=== PATIENT | male | born 1945 ===

== ENCOUNTER 2021-11-17 09:45 | Inpatient (IN) | payer OTHER ==
[~2021-11-17] VITALS: Ht 177.8 cm; Wt 83.9 kg
[2021-11-17] MEDS ORDERED: COZAAR100 MG PO (13:22)
[2021-11-17] MEDS ORDERED: GLUMETZA1000 MG PO (13:22)
[2021-11-19] MEDS ORDERED: TAMSULOSIN HCL0.4 MG (14:59)
[2021-11-19] MEDS ORDERED: BETAMETHASONE D15 GM (14:59)
[2021-11-19] MEDS ORDERED: AMLODIPINE BESYL5 MG (14:59)
[2021-11-19] MEDS ORDERED: GABAPENTIN300 M2 (14:59)
[2021-11-19] MEDS ORDERED: GLIPIZIDE10 MG (14:59)
[2021-11-19] MEDS ORDERED: CICLOPIROX (14:59)
[2021-11-19] MEDS ORDERED: ROSUVASTATIN CA20 MG (15:00)
[2021-11-19] MEDS ORDERED: ATORVASTATIN CA20 MG (15:00)
== END 2021-11-21 13:07 | disposition home or self-care (01) | DRG 708 ==
LOC: SURH 11-19 09:45 → O/R 11-19 11:34 → SURH 11-19 14:45 → SURG 11-20 12:14
PROVIDERS: ADMIT Urology; ATTEND Urology
PROC: 0VT04ZZ Resection of Prostate, Percutaneous Endoscopic Approach (ICD-10-PCS; principal; 2021-11-19 14:45)
DX: N40.0 Benign prostatic hyperplasia without lower urinary tract symptoms (principal); R30.0 Dysuria; Z20.822 Contact with and (suspected) exposure to COVID-19; E11.9 Type 2 diabetes mellitus without complications; N31.2 Flaccid neuropathic bladder, not elsewhere classified

== ENCOUNTER 2023-03-04 09:36 | Outpatient (CLI) | payer OTHER ==
[~2023-03-04 09:36] MED LIST: AMLODIPINE BESYL5 MG; ATORVASTATIN CA20 MG; BETAMETHASONE D15 GM; CICLOPIROX; COZAAR100 MG PO; GABAPENTIN300 M2; GLIPIZIDE10 MG; GLUMETZA1000 MG PO; ROSUVASTATIN CA20 MG; TAMSULOSIN HCL0.4 MG
== END 2023-03-04 09:42 | disposition home or self-care (01) ==
LOC: TOM 09:36
PROVIDERS: ATTEND Urology
DX: R10.31 Right lower quadrant pain (principal)